=== PATIENT | male | born 1990 | race Caucasian/White ===

== ENCOUNTER 2017-09-28 21:28 | Emergency (ER) | payer SELFPAY ==
[~2017-09-28] VITALS: Ht 180.3 cm; Wt 88.0 kg
[~2017-09-28 21:28] MED LIST: Z.0.NO CURRENT MEDS
[2017-09-28 21:31] VITALS: BP 152/89; PULSE 113; RESP 18; TEMP 98; O2SAT 97
[2017-09-28 21:39] VITALS: BP 120/91
[2017-09-28] MEDS ORDERED: SODIUM CHLOR 0.9% 1000 ML INJ 1,000 ML IV SCH (22:56)
[2017-09-28] MEDS ORDERED: SODIUM CHLORIDE 0.9% FLUSH 10 ML FLUSH IV FLUSH PRN (23:00)
[2017-09-28] MEDS ORDERED: ONDANSETRON HCL 4 MG/2 ML VIAL IVP ONE (23:00)
[2017-09-28] MEDS ORDERED: LORazepam 2 MG/ML VIAL IV PUSH ONE (23:00)
--- NOTE | 2017-09-28 23:03 | PD ---
HPI Chief Complaint: Anxiety Time Seen by Provider: 22:52 Travel History International Travel<30 days: No Contact w/Intl Traveler<30days: No Traveled to known affect area: No History of Present Illness HPI 27-year-old male with history of alcohol abuse here with his mom for evaluation of possible anxiety, possible alcohol withdrawals, stuttering. Patient drinks beer daily and has been doing so since the age of 23. States that he drinks a significant amount throughout the day, and on the weekends he drinks liquor with his friends. This last weekend he consumed a pre-significant amount of alcohol. His last alcoholic beverage was about 2 hours prior to my assessment. Today he began to have stuttered speech and became tremulous and believes he may been having a panic attack. He was given some IV fluids by EMS and his symptoms seemed to have improved. Patient has been actively trying to get into [facility] all day yesterday as he would like to detox from alcohol. No fevers or recent illness. No motor deficits. No IVDU or illicit drug use. No suicidal or homicidal ideation. PFSH Past Medical History ?: Not Past Surgical History Ear Surgery: Yes (TUBES A CHILD) Social History Alcohol Use: Yes (DRINKS ) Tobacco Use: Yes (QUIT 2 MONTHS AGO 1PPD) Substance Use: No Allergies-Medications (Allergen,Severity, Reaction): Coded Allergies: Penicillins (Verified Allergy, Unknown, 09/28/17) Reported Meds & Prescriptions Reported Meds & Active Scripts Active Review of Systems Except as stated in HPI: all other systems reviewed are Neg Physical Exam Narrative GENERAL: Well-developed, well-nourished, awake, alert, slightly tremulous, no apparent distress. SKIN: Focused skin assessment warm/dry. No rash. HEAD: Atraumatic. Normocephalic. EYES: Pupils equal and round. No scleral icterus. No injection or drainage. ENT: Mucous membranes pink and dry. NECK: Trachea midline. No JVD. CARDIOVASCULAR: Tachycardic, rate 110. RESPIRATORY: No accessory muscle use. Clear to auscultation. Breath sounds equal bilaterally. GASTROINTESTINAL: Abdomen soft, non-tender, nondistended. MUSCULOSKELETAL: No obvious deformities. No clubbing. No cyanosis. No edema. NEUROLOGICAL: Awake and alert. No obvious cranial nerve deficits. Motor grossly within normal limits. Normal speech. No focal deficits. PSYCHIATRIC: Appropriate mood and affect; insight and judgment normal. Data Data Last Documented VS Vital Signs Date Time Temp Pulse Resp B/P (MAP) Pulse Ox O2 Delivery O2 Flow Rate FiO2 09/28/17 21:39 120/91 (101) 09/28/17 21:31 98.0 113 18 97 Orders Orders Complete Blood Count With Diff (09/28/17 22:56) Comprehensive Metabolic Panel (09/28/17 22:56) Iv Access Insert/Monitor (09/28/17 22:56) Ecg Monitoring (09/28/17 22:56) Oximetry (09/28/17 22:56) Ondansetron Inj (Zofran Inj) (09/28/17 23:00) Sodium Chlor 0.9% 1000 Ml Inj (Ns 1000 M (09/28/17 22:56) Sodium Chloride 0.9% Flush (Ns Flush) (09/28/17 23:00) Electrocardiogram (09/28/17 22:56) Lorazepam Inj (Ativan Inj) (09/28/17 23:00) Alcohol (Ethanol) (09/28/17 22:56) Labs Laboratory Tests Test 09/28/17 23:00 White Blood Count 6.1 TH/MM3 Red Blood Count 4.54 MIL/MM3 Hemoglobin 14.4 GM/DL Hematocrit 42.8 % Mean Corpuscular Volume 94.1 FL Mean Corpuscular Hemoglobin 31.7 PG Mean Corpuscular Hemoglobin Concent 33.7 % Red Cell Distribution Width 12.1 % Platelet Count 202 TH/MM3 Mean Platelet Volume 6.6 FL Neutrophils (%) (Auto) 55.5 % Lymphocytes (%) (Auto) 35.0 % Monocytes (%) (Auto) 6.9 % Eosinophils (%) (Auto) 1.4 % Basophils (%) (Auto) 1.2 % Neutrophils # (Auto) 3.4 TH/MM3 Lymphocytes # (Auto) 2.1 TH/MM3 Monocytes # (Auto) 0.4 TH/MM3 Eosinophils # (Auto) 0.1 TH/MM3 Basophils # (Auto) 0.1 TH/MM3 CBC Comment DIFF FINAL Differential Comment Blood Urea Nitrogen 8 MG/DL Creatinine 0.76 MG/DL Random Glucose 88 MG/DL Total Protein 7.3 GM/DL Albumin 4.0 GM/DL Calcium Level 7.9 MG/DL Alkaline Phosphatase 73 U/L Aspartate Amino Transf (AST/SGOT) 34 U/L Alanine Aminotransferase (ALT/SGPT) 47 U/L Total Bilirubin 0.5 MG/DL Sodium Level 143 MEQ/L Potassium Level 3.5 MEQ/L Chloride Level 107 MEQ/L Carbon Dioxide Level 27.5 MEQ/L Anion Gap 9 MEQ/L Estimat Glomerular Filtration Rate 125 ML/MIN Ethyl Alcohol Level 304 MG/DL [facility] Medical Decision Making Medical Screen Exam Complete: Yes Emergency Medical Condition: Yes Differential Diagnosis Alcohol intoxication, metabolic abnormality, dehydration, alcohol withdrawal, anxiety/panic attack Narrative Course Vital signs reviewed. CBC is unremarkable. CMP is unremarkable. Alcohol level is 304. Patient was given a liter normal saline IV and 1 mg of IV Ativan and feels significantly improved. He is no longer tremulous. Symptoms are more consistent with anxiety. The patient plans on going to [facility] tomorrow to attempt to detox from alcohol. He cannot go there today because there is no better available, however both he and his mom is been contacting [facility] every hour and were told that he will likely be able to get a bed in the morning. Patient is overall well-appearing. He is awake and alert and is calm and pleasant. Plan is to give him a prescription for Ativan to help him with alcohol which were all sent to have him follow-up with [facility] in the morning. He was advised on when to return to the emergency department. Both the patient and the patient's mother verbalized understanding and agreement with plan. Diagnosis Primary Impression: Alcohol intoxication Qualified Codes: F10.920 - Alcohol use, unspecified with intoxication, uncomplicated Additional Impression: Anxiety Referrals: [facility] day Additional Instructions: Follow-up at [facility] in the morning. Return to the emergency department for worsening symptoms or any other concerns. Scripts Chlordiazepoxide HCl (Chlordiazepoxide HCl) 10 Mg Capsule 10 MG PO TID, #12 Prov: Brady Wasserman MD 09/29/17 Lorazepam (Ativan) 1 Mg Tab 1 MG PO Q6H Y for ANXIETY AND/OR AGITATION, #6 TAB 0 Refills Prov: Brady Wasserman MD 09/29/17 Disposition: 01 DISCHARGE HOME Condition: Stable Brady Wasserman MD Sep 28, 2017 23:03
[2017-09-28 23:21] LABS: AUTOMATED NEUTROPHIL # 3.4 TH/MM3 (1.8-7.7); BASOPHIL # 0.1 TH/MM3 (0-0.2); BASOPHIL % 1.2 % (0.0-2.0); EOSINOPHIL # 0.1 TH/MM3 (0-0.4); EOSINOPHIL % 1.4 % (0.0-4.0); HEMATOCRIT 42.8 % (39.0-51.0); HEMOGLOBIN 14.4 GM/DL (13.0-17.0); LYMPHOCYTE # 2.1 TH/MM3 (1.0-4.8); MEAN CELL VOLUME 94.1 FL (80.0-100.0); MEAN CORPUSCULAR HEMOGLOBIN 31.7 PG (27.0-34.0); MEAN CORPUSCULAR HGB CONC 33.7 % (32.0-36.0); MEAN PLATELET VOLUME 6.6 FL (7.0-11.0); MONO % 6.9 % (0.0-8.0); MONOCYTE # 0.4 TH/MM3 (0-0.9); NEUT % 55.5 % (16.0-70.0); PLATELET COUNT 202 TH/MM3 (150-450); RED BLOOD COUNT 4.54 MIL/MM3 (4.50-5.90); RED CELL DISTRIBUTION WIDTH 12.1 % (11.6-17.2); WHITE BLOOD COUNT 6.1 TH/MM3 (4.0-11.0)
[2017-09-28 23:48] LABS: AST (GOT) 34 U/L (15-37); BICARBONATE 27.5 MEQ/L (21.0-32.0); BLOOD UREA NITROGEN 8 MG/DL (7-18); CALCIUM 7.9 MG/DL (8.5-10.1); CHLORIDE 107 MEQ/L (98-107); CREATININE 0.76 MG/DL (0.60-1.30); GLOMERULAR FILTRATION RATE 125 ML/MIN (>89); GLUCOSE,RANDOM 88 MG/DL (74-106); SODIUM (NA) 143 MEQ/L (136-145)
[2017-09-28 23:49] LABS: ALT (GPT) 47 U/L (12-78)
[2017-09-28 23:53] LABS: ALKALINE PHOSPHATASE 73 U/L (45-117); TOTAL BILIRUBIN ADULT 0.5 MG/DL (0.2-1.0); TOTAL PROTEIN 7.3 GM/DL (6.4-8.2)
[2017-09-29] MEDS ORDERED: LORA-474 PO (00:41)
[2017-09-29] MEDS ORDERED: CHLO10CA5 PO (00:41)
[2017-09-29 00:46] VITALS: BP 120/82
--- NOTE | 2017-09-29 12:09 | EKG ---
Date Performed: 09/28/2017 Time Performed: 23:48:09 PTAGE: 27 years EKG: Sinus rhythm POSSIBLE RIGHT VENTRICULAR CONDUCTION DELAY BORDERLINE ECG PREVIOUS TRACING : 05/29/2010 13.03 Since the prior tracing, there has been no significant son DOCTOR: Christ Scott Interpretating Date/Time 09/29/2017 12:08:24
== END 2017-09-29 00:47 | disposition home or self-care (01) ==
LOC: NEPD 21:28
DX: F10.129 Alcohol abuse with intoxication, unspecified (principal); Y90.8 Blood alcohol level of 240 mg/100 ml or more; R94.31 Abnormal electrocardiogram [ECG] [EKG]; Z87.891 Personal history of nicotine dependence
CPT/HCPCS: 80053; 80307; 85025; 93005; 96361; 96374; 96375; 99284; J2060; J2405; J7030